=== PATIENT | female | born 1975 | race Caucasian/White ===

== ENCOUNTER 2018-03-20 06:15 | Day surgery (SDC) | payer OTHER ==
[2018-03-19 08:57] VITALS: BMI 18.8
--- NOTE | 2018-03-19 17:11 | HP ---
Admitting History and Physical - Admission Chief Complaint: Chronic sinusitis History of Present Illness: 42 yo female with chronic nasal congestion/sinusitis with nasal polyps, deviated septum unrelieved with medical therapy History Source: Patient Limitations to Obtaining History: No Limitations (Ulcerative Colitis) - Past Medical History Gastrointestinal: Yes: Ulcerative Colitis ...LMP: 03/01/18 ENT: Yes: Allergic Rhinitis, Sinusitis - Past Surgical History Past Surgical History: Yes: Tonsillectomy - Smoking History Smoking history: Former smoker Have you smoked in the past 12 months: No - Alcohol/Substance Use Hx Alcohol Use: Yes (OCCAS) Home Medications - Allergies Allergies/Adverse Reactions: Allergies Allergy/AdvReac Type Severity Reaction Status Date / Time christa Allergy Mild RASH LIPS Verified 03/19/18 08:57 TREES,GRASS Allergy Uncoded 03/19/18 08:57 - Home Medications Home Medications: Ambulatory Orders Acetaminophen [Tylenol] 325 mg PO PRN 03/19/18 Review of Systems - Review of Systems Constitutional: reports: No Symptoms Eyes: reports: No Symptoms HENT: reports: Nasal Congestion Neck: reports: No Symptoms Cardiovascular: reports: No Symptoms Respiratory: reports: No Symptoms Physical Examination Constitutional: Yes: Well Nourished Eyes: Yes: WNL HENT: Yes: Nasal Congestion, Other (deviated septum, inferior turbinate hypertrophy and nasal polyps) Neck: Yes: WNL Neurological: Yes: Cran Nerves II-XII Intact Imaging - Results Cat Scan: Report Reviewed, Image Reviewed (chronic sinusitis/DNS) Problem List - Problems (1) Chronic sinusitis Assessment/Plan: PT with chronic sinusitis/nasal polyposis for ESS Code(s): J32.9 - CHRONIC SINUSITIS, UNSPECIFIED (2) Deviated nasal septum Assessment/Plan: Nasal obstruction- for septoplasty/SMR of enlarged inferior turbinates Code(s): J34.2 - DEVIATED NASAL SEPTUM Assessment/Plan For OR today
[2018-03-20] MEDS ORDERED: ROCURONIUM BROMIDE 50 MG/5 ML VIAL ONE ×3 (07:27→08:36)
[2018-03-20] MEDS ORDERED: SUCCINYLCHOLINE CHLORIDE 200 MG/10 ML VIAL ONE (07:27)
[2018-03-20] MEDS ORDERED: DEXAMETHASONE SOD PHOSPHATE 4 MG/1 ML VIAL ONE ×3 (07:28→08:37)
[2018-03-20] MEDS ORDERED: MIDAZOLAM HCL 2 MG/2 ML SINGLE DOSE VIAL ONE (07:29)
[2018-03-20] MEDS ORDERED: COCAINE HCL 4% TOPICAL SOLUTION 4 ML BOTTLE TP ONE ×2 (07:33→08:49)
[2018-03-20] MEDS ORDERED: LIDOCAINE 1%/EPI 1:100000 (20 ML MULTI DOSE VIAL) ONE ×2 (07:35→09:17)
[2018-03-20] MEDS ORDERED: ONDANSETRON 4 MG/2 ML VIAL IVPUSH PRN (07:56)
[2018-03-20] MEDS ORDERED: LACTATED RINGERS SOLUTION 1,000 ML IV SCH (08:00)
[2018-03-20] MEDS ORDERED: PROPOFOL 20 ML ONE ×3 (08:09→08:24)
[2018-03-20] MEDS ORDERED: KETOROLAC TROMETHAMINE 30 MG/1 ML VIAL ONE ×2 (08:37→09:45)
[2018-03-20] MEDS ORDERED: LIDOCAINE HCL/PF 2% SDV 5ML VIAL ONE (08:37)
[2018-03-20] MEDS ORDERED: LIDOCAINE 1%/EPI 1:100000 (20 ML MULTI DOSE VIAL) IJ ONE (08:49)
[2018-03-20] MEDS ORDERED: BACITRACIN 15 GM TUBE TOPICAL OINTMENT ONE (09:33)
[2018-03-20] MEDS ORDERED: BACITRACIN 15 GM TUBE TOPICAL OINTMENT TP ONE (09:47)
[2018-03-20] MEDS ORDERED: GLYCOPYRROLATE 0.2 MG/1 ML VIAL ONE (09:49)
[2018-03-20] MEDS ORDERED: NEOSTIGMINE METHYLSULFATE 0.5 MG/ML - 10 ML MDV ONE (09:49)
[2018-03-20] MEDS ORDERED: ACETAMINOPHEN 325 MG TABLET (FP) PO PRN (09:57)
[2018-03-20 11:33] VITALS: TEMP 98.1
--- NOTE | 2018-03-20 13:09 | OP ---
DATE OF OPERATION: 03/20/2018 PREOPERATIVE DIAGNOSES: 1. Chronic pansinusitis with nasal polyposis. 2. Nasal obstruction secondary to bilateral inferior turbinate hypertrophy. POSTOPERATIVE DIAGNOSES: 1. Chronic pansinusitis with nasal polyposis. 2. Nasal obstruction secondary to bilateral inferior turbinate hypertrophy. PROCEDURE: 1. Bilateral total ethmoidectomies with use of stereotactic navigation system. 2. Bilateral maxillary antrostomies with tissue removal. 3. Bilateral sphenoidotomies. 4. Bilateral frontal sinusotomy. ANESTHESIA: General, Dr. . BLOOD LOSS: 5 mL FINDINGS: Chronic pansinusitis bilaterally with nasal polyposis extending from the maxillary sinuses, ethmoid sinuses, sphenoid sinus, and frontal outflow tract, as well as bilateral inferior turbinate hypertrophy. Nasal septum was only slightly deviated without gross obstruction in either of the airway or obstructing access to the middle meatus. Given that fact, no septoplasty was performed. INDICATION: Patient is a 42-year-old female with a long history of chronic sinusitis, nasal polyposis, and obstruction, unrelieved with medical therapy. Patient presents for surgical intervention. Risks, benefits, and alternatives of the procedure were all explained to the patient and questions were answered and consent was signed. DESCRIPTION OF PROCEDURE: After obtaining informed consent, patient was brought to the operating room and placed on the operative table in supine position. After induction of general endotracheal anesthesia, was prepped and draped in the usual sterile fashion. The [employer] navigation system was brought into the field. Patient was registered, and precision and accuracy were confirmed. Next, nasal cavities were prepped with 4% soaked cocaine nasal pledgets, followed by injection of 1% lidocaine with epinephrine into the inferior turbinates and visible polyps. Next, using the 0-degree telescope, further anesthesia was applied to the anterior turbinates, the uncinate process, as well as visible polyps. Again, proper anatomy was confirmed with the navigation system. A sickle knife was used to make an incision to the right uncinate process. Uncinectomy was performed. Massive polyps were noted emanating from the right maxillary sinus. Using a side biter, an antrostomy was performed with removal of multiple polyps with outbiting Ara forceps, as well as giraffe forceps. Once removed, sinus appeared clear. Attention was then turned to the ethmoid sinuses and the intranasal polyps. Using straight-biting and up-biting Ara forceps, polyps were removed with total ethmoidectomy performed from an [id number] fashion through the basal lamella. Reconfirmation of safe anatomy was performed throughout the process using the suction probe of the navigation system. Once completed, the anterior wall of the sphenoid sinus was identified and entered. Sphenoidotomy was performed. Polypoid tissue was then suctioned and mucus from the right sphenoid sinus. Once completed, frontal sinus balloon instrument with tracking was brought into the field. The frontal sinus outflow tract was identified. The balloon was advanced into the frontal sinus opening under navigation guidance, and a balloon sinusotomy was performed. Balloon was then removed. No active bleeding was seen on the right side. Palpation of the globe, no fat herniation was noted. No clear fluid was noted either. epinephrine-soaked nasal pledgets were placed on the right side. Attention was then turned to the left nasal cavity. Again, massive polyposis was noted. Further injection was made into the polyps and uncinate process and middle turbinate. Sickle knife was used to make incision in the uncinate process. Uncinate was removed. Using a shaver, polyps were debrided. The right maxillary ostia were identified, and a sidebiter was used to perform an antrostomy. Further polyps were then removed using the upbiting Ara forceps and sent to Pathology. Once completed, the maxillary sinus was irrigated. No further disease was noted. Again, attention was turned to the ethmoid region where polyps were noted. Using the straight-biting and upbiting Ara forceps as well as navigation and shaver, polyps were removed from an [id number] fashion with dissection through the basal lamella and opening the ethmoid cells. Once clear again throughout, anatomy was confirmed. Anterior wall of the sphenoid sinus was identified and entered with again suctioning of polypoid material and thick mucus. Once completed there, our attention was then turned. Again, the frontal sinus balloon probe was brought into the field. The frontal outflow tract was identified and confirmed by navigation that the balloon was advanced into the frontal sinus opening, and sinusotomy was performed. Balloon was then removed. Again, area was suctioned. No active bleeding was seen. No fat herniation upon palpation of the globe. No clear fluid was noted. Again, further hemostasis was achieved there with pledgets. Attention was then turned to the inferior turbinates which were obstructing the lower airway. Under direct vision, incision was made at the tip of the right inferior turbinate after outfracturing. Submucosal dissection was carried out with removal of anterior portion of the turbinate bone, followed by intramural cauterization with the suction Bovie cautery. Flaps were then reapproximated and the turbinate lateralized. This improved airway on the right. Attention was then turned to the left-sided airway. Again, the turbinate was medialized. Stab incision made at the anterior tip with a 15 blade. Submucosal dissection was carried out with resection of the anterior portion of the turbinate bone. Intramural cauterization with the suction Bovie cautery was then performed. Flaps were again reapproximated and turbinate medialized. Airway appeared clear. Again, nasopharynx was suctioned. Firm Medipore packs were placed in the region of the middle meatus, followed by placement of firm Medipore packs inferiorly. Again, no active bleeding was seen. Nasal tip dressing was placed. The patient was then awoken from anesthesia, extubated, and transferred to the recovery room awake, alert, in stable condition, where there she was noted to have normal extraocular movements and intact vision. KRISSY QUINTANILLA M.D. [id number]
[2018-03-20 13:29] VITALS: BP 114/60; PULSE 76
--- NOTE | 2018-03-21 14:05 | PATH ---
Surgical Pathology Report Patient Name: CAMERON CALDERON [facility]. Rec. #: [id number] /Age/Gender: 1975 (Age: 42) / F Account: [id number] Location: [facility] Taken: 03/20/2018 Received: 03/20/2018 Reported: 03/21/2018 Physicians: Demetrio Oliver M.D. Specimen(s) Received A: MAXILLARY POLYP, RIGHT B: ETHMOID TISSUES, RIGHT C: MAXILLARY POLYP, LEFT D: ETHMOID TISSUES, LEFT E: INFERIOR TURBINATE TISSUE Clinical History Deviated nasal septum, hypertrophy of nasal turbinates Final Diagnosis A. MAXILLARY, POLYP, RIGHT, ANTROSTOMY WITH TISSUE REMOVAL: NASAL (INFLAMMATORY) POLYP. FRAGMENTS OF RESPIRATORY MUCOSA WITH CHRONIC SINUSITIS. B. ETHMOID TISSUE, RIGHT, TOTAL ETHMOIDECTOMY: FRAGMENTS OF RESPIRATORY MUCOSA WITH CHRONIC SINUSITIS AND BONE. NASAL (INFLAMMATORY) POLYP. C. MAXILLARY POLYP, LEFT, ANTROSTOMY WITH TISSUE REMOVAL: NASAL (INFLAMMATORY) POLYP. FRAGMENTS OF RESPIRATORY MUCOSA WITH CHRONIC SINUSITIS AND BONE. D. ETHMOID TISSUE, LEFT, TOTAL ETHMOIDECTOMY: FRAGMENTS OF RESPIRATORY MUCOSA WITH CHRONIC SINUSITIS AND BONE. NASAL (INFLAMMATORY) POLYP. E. INFERIOR TURBINATES, SUBMUCOUS RESECTION OF INFERIOR TURBINATES: FRAGMENTS OF RESPIRATORY MUCOSA AND BONE. Electronically Signed Randee Laguna M.D. Gross Description A. Received in formalin labeled "maxillary polyp right," are 4 kingston-yellow, polypoid portions of soft tissue ranging from 1.3 x 1.0 x 0.3 cm to 2.9 x 1.8 x 0.3 cm. The polyps are entirely submitted in 2 cassettes. B. Received in formalin labeled "ethmoid tissue right," is a 3.7 x 2.5 x 0.2 cm aggregate of kingston soft tissue and bone fragments. The specimen is entirely submitted in 2 cassettes, following decalcification. C. Received in formalin labeled "maxillary polyp left," is a 2.2 x 1.8 x 0.2 cm aggregate of kingston soft tissue, cartilage and bone fragments. The specimen is entirely submitted in one cassette, following decalcification. D. Received in formalin labeled "ethmoid tissue left," and is a 2.7 x 2.6 x 0.3 cm aggregate of kingston soft tissue, cartilage and bone fragments. The specimen is entirely submitted in one cassette, following decalcification. E. Received in formalin labeled "inferior turbinate," is a 1.0 x 0.6 x 0.2 cm aggregate of kingston fragments of bone and soft tissue. The specimen is entirely submitted in one cassette, following decalcification. 03/20/2018 [facility]03/20/2018
== END 2018-03-20 13:10 | disposition home or self-care (01) ==
LOC: JASU-SURG 06:15
PROVIDERS: ATTEND Otolaryngology
PROC: 09BV8ZZ Excision of Left Ethmoid Sinus, Via Natural or Artificial Opening Endoscopic (ICD-10-PCS; 2018-03-20)
PROC: 09BU8ZZ Excision of Right Ethmoid Sinus, Via Natural or Artificial Opening Endoscopic (ICD-10-PCS; 2018-03-20)
PROC: 8E09XBZ Computer Assisted Procedure of Head and Neck Region (ICD-10-PCS; 2018-03-20)
PROC: 099R8ZZ Drainage of Left Maxillary Sinus, Via Natural or Artificial Opening Endoscopic (ICD-10-PCS; 2018-03-20)
PROC: 099Q8ZZ Drainage of Right Maxillary Sinus, Via Natural or Artificial Opening Endoscopic (ICD-10-PCS; 2018-03-20)
PROC: 8E09XBZ Computer Assisted Procedure of Head and Neck Region (ICD-10-PCS; principal; 2018-03-20 08:00)
DX: J32.4 Chronic pansinusitis (principal); J33.9 Nasal polyp, unspecified; J34.3 Hypertrophy of nasal turbinates; J34.89 Other specified disorders of nose and nasal sinuses
CPT/HCPCS: 84703; 88304-TC; 94760